=== PATIENT | female | born 1995 | race Caucasian/White ===

== ENCOUNTER 2016-09-25 10:57 | Emergency (ER) | payer OTHER ==
[2016-09-25] MEDS ORDERED: methylPREDNISolone SOD SUCCI 125 MG/2 ML VIAL IV STA (11:43)
[2016-09-25] MEDS ORDERED: diphenhydrAMINE 50 MG/ML 1 ML VIAL IVP STA (11:43)
--- NOTE | 2016-09-25 11:53 | ED ---
General Adult HPI - General Chief complaint: Allergic Reaction Stated complaint: allergic reaction Time Seen by Provider: 09/25/16 11:36 Source: patient, RN notes reviewed Mode of arrival: ambulatory Limitations: no limitations - History of Present Illness Initial comments: Patient 21-year-old female who presents emergency room today with chief complaint of ALLERGIC reaction. She does admit to breaking out in a rash and hives. She states that symptoms started yesterday. She states she recently finished an antibiotic of doxycycline just 2 days prior. She states she was seen at urgent care yesterday and given construction site crossing guard, Supriya. She states she did have improvement. She states she woke up today with increased swelling and hives once again. She states. Itchy. Denies any tongue swelling, difficulty breathing or swallowing. Patient does admit that she has continued Benadryl, Zantac, steroid Dosepak as prescribed. She denies any other complaints. Patient denies any recent fever, chills, shortness of breath, chest pain, back pain, abdominal pain, nausea or vomiting, numbness or tingling, dysuria or hematuria, constipation or diarrhea, headaches or visual changes, or any other complaints. - Related Data Home Medications Medication Instructions Recorded Confirmed Albuterol Sulfate [Proair Hfa] 1 - 2 puff INHALATION Q6HR PRN 09/25/16 09/25/16 Cholecalciferol (Vitamin D3) 2,000 unit PO DAILY 09/25/16 09/25/16 [Vitamin D3] Multivitamin [Multiple Vitamins] 1 tab PO DAILY 09/25/16 09/25/16 Norethindrone AC-Eth Estradiol 1 tab PO DAILY 09/25/16 09/25/16 [Microgestin 21 1.5-30 Tab] Phentermine HCl 37.5 mg PO DAILY 09/25/16 09/25/16 Propranolol [Inderal] 60 mg PO DAILY PRN 09/25/16 09/25/16 Ranitidine HCl [Zantac] 150 mg PO BID 09/25/16 09/25/16 buPROPion SR [Wellbutrin Sr] 150 mg PO BID 09/25/16 09/25/16 diphenhydrAMINE [Benadryl] 25 mg PO QID 09/25/16 09/25/16 methylPREDNISolone [Medrol Dose See Taper PO DIRECTED 09/25/16 09/25/16 Pack] Allergies Allergy/AdvReac Type Severity Reaction Status Date / Time amoxicillin Allergy Rash/Hives Verified 09/25/16 12:30 azithromycin [From Zithromax] Allergy Rash/Hives Verified 09/25/16 12:30 cefuroxime [From Ceftin] Allergy Rash/Hives Verified 09/25/16 12:30 clavulanic acid Allergy Rash/Hives Verified 09/25/16 12:30 dicyclomine Allergy Rash/Hives Verified 09/25/16 12:30 doxycycline Allergy Rash/Hives Verified 09/25/16 12:30 fexofenadine [From Eryn] Allergy Abdominal Verified 09/25/16 12:30 Pain Sulfa (Sulfonamide Allergy Rash/Hives Verified 09/25/16 12:30 Antibiotics) Tetracyclines Allergy Swelling Verified 09/25/16 12:30 Review of Systems ROS Statement: Those systems with pertinent positive or pertinent negative responses have been documented in the HPI. ROS Other: All systems not noted in ROS Statement are negative. Past Medical History Past Medical History: Asthma, Hypertension Past Surgical History: No Surgical Hx Reported Past Psychological History: Anxiety Smoking Status: Never smoker Past Alcohol Use History: None Reported Past Drug Use History: None Reported General Exam - General Exam Comments Initial Comments: General: The patient is awake and alert, in no distress, and does not appear acutely ill. Eye: Pupils are equal, round and reactive to light, extra-ocular movements are intact. No nystagmus. There is normal conjunctiva bilaterally. No signs of icterus. Ears, nose, mouth and throat: There are moist mucous membranes and no oral lesions. No tongue swelling. No angioedema. No difficulty swallowing. Neck: The neck is supple, there is no tenderness or JVD. Cardiovascular: There is a regular rate and rhythm. No murmur, rub or gallop is appreciated. Respiratory: Lungs are clear to auscultation, respirations are non-labored, breath sounds are equal. No wheezes, stridor, rales, or rhonchi. Musculoskeletal: Normal ROM, no tenderness. Strength 5/5. Sensation intact. Pulses equal bilaterally 2+. Neurological: A&O x 3. CN II-XII intact, There are no obvious motor or sensory deficits. Coordination appears grossly intact. Speech is normal. Skin: Does have red raised rash to the legs and upper extremities and across her chest consistent with hives. Psychiatric: Cooperative, appropriate mood & affect, normal judgment. Limitations: no limitations Course Vital Signs 09/25/16 11:08 Pulse Rate 98 Respiratory 20 Rate Blood Pressure 129/77 O2 Sat by Pulse 100 Oximetry Medical Decision Making - Medical Decision Making Patient reexamined at this time shows no signs of distress. She does admit to improvement after Benadryl and steroids given here in the emergency room. At this time patient will be discharged home advised continue previously prescribed Benadryl, steroids, Zantac for her symptoms. Advised to follow-up with family doctor next 1-2 days. Advised return to the emergency room if any symptoms increase or worsen or for any other concerns. Patient and mother at bedside state understanding and are in agreement. Disposition Clinical Impression: Allergic reaction Disposition: HOME SELF-CARE Condition: Good Instructions: Anaphylaxis (ED) Additional Instructions: Please use medication as discussed. Please follow-up with family doctor in the next 2 days of symptoms have not improved. Please return to emergency room if the symptoms increase or worsen or for any other concerns. Referrals: Nonstaff,Physician [Primary Care Provider] - 1-2 days Time of Disposition: 12:44
[2016-09-25 12:55] VITALS: BP 117/68; PULSE 91; RESP 18; TEMP 99.4
== END 2016-09-25 12:55 | disposition home or self-care (01) ==
LOC: EC 10:57
DX: T78.40XA Allergy, unspecified, initial encounter (principal); I10 Essential (primary) hypertension; F41.9 Anxiety disorder, unspecified; Z79.52 Long term (current) use of systemic steroids; Z79.899 Other long term (current) drug therapy; Z79.3 Long term (current) use of hormonal contraceptives; Z88.0 Allergy status to penicillin; Z88.1 Allergy status to other antibiotic agents; Z88.2 Allergy status to sulfonamides; Z88.8 Allergy status to other drugs, medicaments and biological substances
CPT/HCPCS: 99283; 96374; 96375; J1200; J2930